=== PATIENT | female | born 1940 | race Two or more races ===

== ENCOUNTER 2016-10-06 20:09 | Emergency (ER) | payer OTHER ==
[~2016-10-06] VITALS: Ht 152.4 cm; Wt 69.9 kg
--- NOTE | 2016-10-06 20:10 | NUR ---
To bed 3 a 76 yo female bibra with c/o witness syncopal episode at home. Per son at bedside, patient said "I dont feel well." Then she passed out for about 15 secs. Upon arrival to er, patient is aaox3, no s/s of acute distress. Breathing even and unlabored. Gowned. Safety measures initiated. Awaiting for er md gomez.
--- NOTE | 2016-10-06 20:30 | NUR ---
ekg at bedside.
--- NOTE | 2016-10-06 20:37 | NUR ---
lab at bedside.
[2016-10-06 20:42] LABS: BASOPHILS % (AUTO) 0.3 % (0.0-2.0); EOSINOPHILS # (AUTO) 0.3 /CMM (0.0-0.7); EOSINOPHILS % (AUTO) 3.1 % (0.0-6.0); HEMATOCRIT 25 % (33-45); HEMOGLOBIN 8.3 g/dL (11.5-14.8); LYMPHOCYTES # (AUTO) 2.6 /CMM (0.8-4.8); LYMPHOCYTES % (AUTO) 23.9 % (20.0-44.0); MEAN CORPUSCULAR HEMOGLOBIN 29 PG (26.0-33.0); MEAN CORPUSCULAR HGB CONC 33 g/dl (31.0-36.0); MEAN CORPUSCULAR VOLUME 88 fL (82-100); MONOCYTES # (AUTO) 0.9 /CMM (0.1-1.30); NEUTROPHILS # (AUTO) 6.9 /CMM (1.8-8.9); NEUTROPHILS % (AUTO) 64.7 % (43.0-81.0); PLATELET COUNT (AUTO) 376 /CMM (150-450); RDW COEFFICIENT OF VARIATION 13.1 (11.5-15.0); RED BLOOD CELL COUNT(AUTO) 2.83 MIL/uL (4.0-5.2); WHITE BLOOD COUNT (AUTO) 10.7 K/uL (4.3-11.0)
[2016-10-06 20:51] LABS: CALCIUM, SERUM 8.6 mg/dL (8.5-10.1); CARBON DIOXIDE 29 mmol/L (21-32); CHLORIDE 104 mmol/L (98-107); CREATININE 1.6 mg/dL (0.6-1.3); GLUCOSE 154 mg/dL (74-106); POTASSIUM 4.4 mmol/L (3.5-5.1); SODIUM SERUM 142 mmol/L (136-145); UREA NITROGEN, BLOOD 33 mg/dL (7-18)
[2016-10-06 20:55] LABS: INR 0.98 (0.87-1.13); PROTHROMBIN TIME 10.2 SECS (9.5-12.7)
[2016-10-06 20:57] LABS: ALANINE AMINOTRANSFERASE 11 U/L (12-78); ALKALINE PHOSPHATASE 71 U/L (46-116); ASPARTATE AMINOTRANSFERASE 11 U/L (15-37); BILIRUBIN,DIRECT 0.1 mg/dL (0.0-0.2); BILIRUBIN,TOTAL 0.1 mg/dL (0.2-1.0); TOTAL PROTEIN, SERUM 6.7 g/dL (6.4-8.2)
[2016-10-06 20:59] LABS: TROPONIN I < 0.017 ng/mL (0.00-0.056)
--- NOTE | 2016-10-06 21:36 | NUR ---
CALLED [facility] NOTIFIED THEM THAT ER PHYSICIAN IS READY TO PRESENT CASE.
[2016-10-06] MEDS ORDERED: IV SET PRIMARY 1 EA INFUS.SET MC ONE (21:59)
[2016-10-06] MEDS ORDERED: IV SET PRIMARY PUMP SET 1 EA INFUS.SET MC ONE ×2 (21:59→22:30)
[2016-10-06] MEDS ORDERED: CEFTRIAXONE 1GM BAG (ER ONLY) 50 ML IV ONE ×2 (21:59→22:00)
[2016-10-06] MEDS ORDERED: IV NS 0.9% 1,000 ML ONE (21:59)
[2016-10-06] MEDS ORDERED: AZITHROMYCIN 500 MG in IV D5W 250 ML IV ONE (22:00)
[2016-10-06] MEDS ORDERED: IV NS 0.9% 1,000 ML BAG IV ONE (22:00)
[2016-10-06] MEDS ORDERED: IV D5W 250 ML IV ONE (22:30)
[2016-10-06] MEDS ORDERED: AZITHROMYCIN 500 MG VIAL ONE (22:30)
--- NOTE | 2016-10-06 22:43 | NUR ---
SPOKE WITH [facility] EMERGENCY DEPARTMENT NURSE; REQUESTING CALL BACK WHEN U/A RESULTS/
[2016-10-06 22:47] LABS: APPEARANCE,URINE SL CLOUDY (CLEAR); BILIRUBIN,URINE NEGATIVE (NEGATIVE); BLOOD, URINE TRACE Ery/uL (NEGATIVE); COLOR,URINE YELLOW (YELLOW); KETONES,URINE NEGATIVE (NEGATIVE); LEUKOCYTE ESTERASE ,URINE 1+ (NEGATIVE); NITRITE, URINE NEGATIVE (NEGATIVE); PROTEIN,URINE 1+ mg/dl (NEGATIVE); UGLUCOSE NEGATIVE (NEGATIVE); UROBILINOGEN,URINE 0.2 EU/dL (0.2)
[2016-10-06 23:00] LABS: ADD URINE CULTURE YES; RBC,URINE 0-2 /HPF (0-2)
[2016-10-06 23:01] LABS: BACTERIA,URINE Few /HPF (None Seen)
[2016-10-06 23:02] LABS: SQUAMOUS EPITHELIAL CELL,UR Few /HPF (None Seen)
--- NOTE | 2016-10-06 23:19 | NUR ---
CALLED [facility] SPOKE WITH BRADDISHER SUZY REGARDING UA RESULTS.
--- NOTE | 2016-10-07 01:38 | NUR ---
REPORT GIVEN TO [facility] ON BEHALF OF PRIMARY NURSE HORTENCIA.
[2016-10-07 01:48] VITALS: BP 131/67
--- NOTE | 2016-10-07 02:07 | NUR ---
Patient left via ambulance, VSS. No further complaints.
== END 2016-10-07 02:07 ==
LOC: ER 20:10
DX: R55 Syncope and collapse (principal); S09.90XA Unspecified injury of head, initial encounter; J18.9 Pneumonia, unspecified organism; D64.9 Anemia, unspecified; E86.0 Dehydration; E11.9 Type 2 diabetes mellitus without complications; I10 Essential (primary) hypertension; I70.0 Atherosclerosis of aorta; Z86.73 Personal history of transient ischemic attack (TIA), and cerebral infarction without residual deficits; X58.XXXA Exposure to other specified factors, initial encounter; Y92.89 Other specified places as the place of occurrence of the external cause; Y93.89 Activity, other specified; Y99.8 Other external cause status
CPT/HCPCS: 36415; 70450; 71010; 80048; 80076; 81001; 83605; 84484; 85025; 85730; 87040 ×2; 87086; 93005; 96365; 96367; 99285; A4606; J0456; J0696; J7030; J7060; 81000-TC; Z7610